=== PATIENT | female | born 1960 | race Caucasian/White ===

== ENCOUNTER 2018-07-19 08:19 | Emergency (ER) | payer OTHER ==
[~2018-07-19] VITALS: Ht 157.5 cm; Wt 68.5 kg
--- OUTSIDE RECORDS SUMMARY | 2018-07-19 08:21 | XMS REPORT ---
[facility] Address Unknown Phone Unavailable Care Team Providers Care Communications Systems Engineer Name Role Phone Unavailable Unavailable Payers Payer Name Policy Type Policy Number Effective Date Expiration Date Problems This patient has no known problems. Allergies, Adverse Reactions, Alerts Allergy Name Allergy Type Status Severity Reaction(s) Onset Date Inactive Date Treating Clinician Comments hydrocodone DA Active [place] 2013-01-02 00:00:00 Penicillins DA Active [place] 2012-10-30 00:00:00 Sulfa (Sulfonamide Antibiotics) DA Active [place] 2012-10-30 00:00:00 Medications This patient has no known medications.
--- OUTSIDE RECORDS SUMMARY | 2018-07-19 08:21 | XMS REPORT | Summary of Care ---
Author Author [facility] Organization [facility] Address Unknown Phone Unavailable Encounter HQ Nayely(FIN) [id number] Date(s): 09/17/17 - 09/17/17 [facility] [address] [place] [address]- [phone] Encounter Diagnosis Diverticulosis of large intestine without perforation or abscess without bleedin g (Final) - 09/23/17 Constipation, unspecified (Final) - Essential (primary) hypertension (Final) - Pain, unspecified (Final) - Family history of malignant neoplasm of digestive organs (Final) - Family history of colonic polyps (Final) - Acquired absence of both cervix and uterus (Final) - Discharge Disposition: Home or Self Care Attending Physician: Makayla Hamilton MD Referring Physician: Makayla Hamilton MD Vital Signs No data available for this section Problem List No data available for this section Allergies, Adverse Reactions, Alerts No data available for this section Medications No data available for this section Results CHEM PANEL Most recent to 1 oldest [Reference Range]: eGFR 98 mL/min/1.73m2 1 *NA* (09/17/17 9:57 AM) POC Creatinine 0.7 mg/dL [0.5-1.4 mg/dL] (09/17/17 9:57 AM) 1Result Comment: The eGFR is calculated using the CKD-EPI formula. In most young, healthy individuals the eGFR will be >90 mL/min/1.73m2. The eGFR declines with age. An eGFR of 60-89 may be normal in some populations, particularly the elderly, for whom the CKD-EPI formula has not been extensively validated. Use of the eGFR is not recommended in the following populations: Individuals with unstable creatinine concentrations, including patients and those with serious co-morbid conditions. Patients with extremes in muscle mass or diet. The data above are obtained from the National Kidney Disease Education Program ( NKDEP) which additionally recommends that when the eGFR is used in patients with extremes of body mass index for purposes of drug dosing, the eGFR should be mul tiplied by the estimated BMI. Immunizations No data available for this section Procedures No data available for this section Social History No data available for this section Assessment and Plan No data available for this section
--- OUTSIDE RECORDS SUMMARY | 2018-07-19 08:21 | XMS REPORT | Clinical Summary ---
Author Author [facility] Address Unknown Phone Unavailable Care Team Providers Care Basin Tender Name Role Phone Isaias Guerra MD PCP Allergies Comments Active Allergy Reactions Severity Noted Date Hydrocodone 10/07/2015 Penicillins 10/07/2015 Sulfa (Sulfonamide 10/07/2015 Antibiotics) Medications End Date Status Medication Sig Dispensed Refills Start Date Active atenolol (TENORMIN) 50 MG 0 tablet 6 Active VITAMIN D2 50,000 unit 0 capsule 6 Active promethazine (PHENERGAN) as needed. 0 25 MG tablet 6 Active ALPRAZolam (XANAX) 0.25 0 MG tablet 7 Active BUMETanide (BUMEX) 2 MG 0 tablet 7 Active cyanocobalamin 1,000 0 mcg/mL injection 7 Active estradiol (ESTRACE) 0.5 Take 1 tablet 60 tablet 0 MG tablet (0.5 mg 8 total) by mouth daily. 05/17/2018 Discontinued estradiol (ESTRACE) 0.5 Take 1 tablet 90 tablet 3 MG tablet (0.5 mg 7 total) by mouth daily. 05/24/2018 Discontinued estradiol (ESTRACE) 0.5 Take 1 tablet 60 tablet 0 MG tablet (0.5 mg 8 total) by mouth daily. Active Problems Problem Noted Date History of abnormal cervical Pap smear 05/17/2016 Encounters Care Team Description Date Type Specialty Barbaar Wagner RN 05/24/2018 Refill Obstetrics and Gynecology Paige Marquez MD Screening mammogram, encounter for (Primary Dx) 05/16/2018 Telephone Obstetrics and Gynecology after 07/18/2017 Family History Medical History Relation Name Comments Diabetes Mother Heart failure Mother Hypertension Mother Ovarian cancer Mother Stroke Mother Ovarian cancer Sister Relation Name Status Comments Mother Sister Social History Date Tobacco Use Types Packs/Day Years Used Never Smoker Alcohol Use Drinks/Week oz/Week Comments Yes social Sex Assigned at Date Recorded Not on file Industry Job Start Date Occupation Not on file Not on file Not on file Travel End Travel History Travel Start No recent travel history available. Last Filed Vital Signs Not on file Plan of Treatment Care Team Description Date Type Specialty Paige Marquez MD [address] [employer] [facility] [address] [place] [address] [phone] 07/31/2018 Office Visit Obstetrics and Gynecology Health Maintenance Due Date Last Done Comments CERVICAL CANCER SCREENING 1983 COLON CANCER SCREENING 2012 SHINGLES VACCINES (1 of 2012 2) INFLUENZA VACCINE 01/11/2018 BREAST CANCER SCREENING 08/11/2018 08/11/2016 Results Not on fileafter 07/18/2017 Insurance Payer Benefit Subscriber ID Type Phone Address Plan / Group AETNA AETNA xxxxxxxxxx HMO HMO,POS,EP O, [facility] Advance Directives Patient has advance care planning documents on file. For more information, good interiano contact: Dwayne Pierson [address] [place] [phone]
[2018-07-19] MEDS ORDERED: PANTOPRAZOLE 40 MG 10ML VIAL IV STA (08:35)
[2018-07-19] MEDS ORDERED: SODIUM CHLORIDE 0.9% 1000ML 1,000 ML IV STA (08:35)
[2018-07-19] MEDS ORDERED: MORPHINE SULFATE INJ 4 MG/ML INJ 1ML IV STA (08:35)
[2018-07-19] MEDS ORDERED: ONDANSETRON HCL INJ 2MG/ML 2ML 2 MG/ML VIAL IM STA (08:35)
[2018-07-19 08:52] LABS: BASOPHILS % 0.4 % (0.0-1.0); EOSINOPHILS # (AUTO) 0.1 (0.0-0.4); HEMATOCRIT 45.2 % (34.2-44.1); HEMOGLOBIN 15.5 g/dL (12.0-16.0); LYMPHOCYTES # (AUTO) 1.8 (1.0-3.2); LYMPHOCYTES % 26.4 % (18.0-39.1); MEAN CORPUSCULAR HEMOGLOBIN 31.8 pg (28-32); MEAN CORPUSCULAR HGB CONC 34.3 g/dL (31-35); MEAN CORPUSCULAR VOLUME 92.8 fL (81-99); MONOCYTES # (AUTO) 0.6 (0.2-0.8); MONOCYTES % 8.7 % (4.4-11.3); NEUTROPHILS # (AUTO) 4.3 (2.1-6.9); NEUTROPHILS % 62.2 % (38.7-80.0); PLATELET COUNT 353 x10e3/uL (140-360); RED BLOOD COUNT 4.87 x10e6/uL (3.6-5.1); RED CELL DISTRIBUTION WIDTH 11.8 % (11.7-14.4)
[2018-07-19 09:09] LABS: ALANINE AMINOTRANSFERASE 50 IU/L (0-55); ALBUMIN/GLOBULIN RATIO 1.1 (0.8-2.0); ALKALINE PHOSPHATASE 88 IU/L (40-150); ANION GAP 17.2 mmol/L (8-16); BLOOD UREA NITROGEN 10 mg/dL (7-26); BUN/CREATININE RATIO 12 (6-25); CARBON DIOXIDE 22 mmol/L (22-29); CHLORIDE 100 mmol/L (98-107); CREATININE, SERUM 0.82 mg/dL (0.57-1.11); EST GLOMERULAR FILTRATION RATE > 60 ML/MIN (60-); GLUCOSE 106 mg/dL (74-118); LIPASE 20 U/L (8-78); POTASSIUM 3.2 mmol/L (3.5-5.1); SODIUM 136 mmol/L (136-145)
[2018-07-19] MEDS ORDERED: ONDANSETRON HCL INJ 2MG/ML 2ML 2 MG/ML VIAL IV STA (09:12)
[2018-07-19 09:25] LABS: CLARITY,URINE SL CLOUDY (CLEAR); COLOR,URINE YELLOW (YELLOW); KETONES,URINE NEGATIVE (NEGATIVE); LEUKOCYTE ESTERASE ,URINE NEGATIVE (NEGATIVE); NITRITE,URINE NEGATIVE (NEGATIVE); PROTEIN,URINE DIPSTICK TRACE (NEGATIVE); URINE UROBILINOGEN 0.2 mg/dL (0.2 - 1)
[2018-07-19 09:26] LABS: BILIRUBIN,URINE NEGATIVE (NEGATIVE)
--- NOTE | 2018-07-19 09:29 | Diagnostic Imaging Report ---
EXAMINATION: CHEST SINGLE (PORTABLE) INDICATION: Abdominal pain. COMPARISON: None FINDINGS: TUBES and LINES: None. LUNGS: Lungs are well inflated. Lungs are clear. There is no evidence of pneumonia or pulmonary edema. PLEURA: No pleural effusion or pneumothorax. HEART AND MEDIASTINUM: The cardiomediastinal silhouette is unremarkable. BONES AND SOFT TISSUES: No acute osseous lesion. Soft tissues are unremarkable. UPPER ABDOMEN: No free air under the diaphragm. IMPRESSION: No acute radiographic abnormality. Signed by: Dr. Vijaya Esparza MD on 07/19/2018 9:25 AM
[2018-07-19 09:36] LABS: BACTERIA,URINE MODERATE /HPF; EPITHELIAL CELLS,URINE MODERATE /LPF
--- NOTE | 2018-07-19 13:25 | Diagnostic Imaging Report ---
EXAM: CT Abdomen and Pelvis WITH contrast INDICATION: Abdominal Pain, history of Crohn's disease. COMPARISON: None. TECHNIQUE: Abdomen and pelvis were scanned utilizing a multidetector helical scanner from the lung base to the pubic symphysis after administration of IV contrast. Coronal and sagittal reformations were obtained. Routine protocol was performed. Scan was performed when during portal venous phase. IV CONTRAST: 100 mL of Isovue 370 ORAL CONTRAST: Water COMPLICATIONS: None RADIATION DOSE: Total DLP: 817.7 mGy*cm CTDIvol has been reviewed. It is below the limits set by the Radiation Protocol Committee (RPC). Dose modulation, iterative reconstruction, and/or weight based adjustment of the mA/kV was utilized to reduce the radiation dose to as low as reasonably achievable. FINDINGS: LINES and TUBES: None. LOWER THORAX: Patchy dependent atelectasis. HEPATOBILIARY: Hypodensity along the falciform ligament likely reflects focal fatty infiltration. No evidence of focal lesion. No biliary ductal dilation. The gallbladder is unremarkable. SPLEEN: No splenomegaly. PANCREAS: No focal masses or ductal dilatation. ADRENALS: No adrenal nodules KIDNEYS/URETERS: Kidneys enhance symmetrically. No evidence of hydronephrosis, solid mass, or stone. GI TRACT: No evidence of distention. There is decompression of some of the ileal loops which demonstrate possible mild thickening, for example on series 2, image 55. No evidence of bowel obstruction. No specific evidence of fistula. Appendix is normal. Diverticulosis without CT evidence of diverticulitis. PELVIC ORGANS/BLADDER: Unremarkable. LYMPH NODES: No lymphadenopathy. VESSELS: There are scattered atherosclerotic calcifications in the aorta and branch vessels. PERITONEUM / RETROPERITONEUM: No free air or fluid. BONES AND SOFT TISSUES: No acute osseous abnormality. No suspicious lytic or blastic lesions. CONCLUSION: Possible mild thickening of some ileal loops, which may reflect decompression or inflammatory changes in this patient with history of Crohn's. No specific evidence of stricture or fistula. Signed by: Dr. Vijaya Esparza MD on 07/19/2018 1:22 PM
[2018-07-19] MEDS ORDERED: ZOFRAN4 MG SL (13:35)
[2018-07-19 13:40] VITALS: BP 120/79
[2018-07-19] MEDS ORDERED: SODIUM CHLORIDE 0.9% 50ML 50 ML ONE (19:27)
[2018-07-19] MEDS ORDERED: IOPAMIDOL 370 MG/ML 200 ML INFUS..BTL INJ ONE (19:27)
== END 2018-07-19 14:22 | disposition home or self-care (01) ==
LOC: ER 08:19
DX: R10.84 Generalized abdominal pain (principal); R11.0 Nausea; R19.7 Diarrhea, unspecified; K50.90 Crohn's disease, unspecified, without complications
CPT/HCPCS: 36415; 71045; 74177; 80053; 81001; 83690; 85025; 99284; C9113; J2270; J2405; J7030; Q9967

== ENCOUNTER 2019-04-01 12:32 | Emergency (ER) | payer BC, OTHER ==
[~2019-04-01] VITALS: Ht 157.5 cm; Wt 68.5 kg
[~2019-04-01 12:32] MED LIST: ZOFRAN4 MG SL
--- NOTE | 2019-04-01 12:53 | NUR ---
SEEN IN TRIAGE BY
[2019-04-01] MEDS ORDERED: SODIUM CHLORIDE 0.9% 1000ML 1,000 ML IV STA (12:59)
[2019-04-01 13:16] LABS: BILIRUBIN,URINE NEGATIVE (NEGATIVE); CLARITY,URINE CLEAR (CLEAR); COLOR,URINE YELLOW (YELLOW); KETONES,URINE NEGATIVE (NEGATIVE); LEUKOCYTE ESTERASE ,URINE NEGATIVE (NEGATIVE); NITRITE,URINE NEGATIVE (NEGATIVE); PROTEIN,URINE DIPSTICK NEGATIVE (NEGATIVE); URINE UROBILINOGEN 0.2 mg/dL (0.2 - 1)
[2019-04-01 13:48] LABS: BACTERIA,URINE RARE /HPF; EPITHELIAL CELLS,URINE FEW /LPF; RBC,URINE 0-5 /HPF (0-5); WBC,URINE (MAN) 0-5 /HPF (0-5)
[2019-04-01 13:56] LABS: INFLUENZAE A&B ANTIGEN (RAPID) NEGATIVE (NEGATIVE); STREPTOCOCCUS GRP A ANTIGEN NEGATIVE (NEGATIVE)
[2019-04-01 13:58] LABS: BASOPHILS # (AUTO) 0.1 (0.0-0.1); BASOPHILS % 0.7 % (0.0-1.0); EOSINOPHILS # (AUTO) 0.3 (0.0-0.4); EOSINOPHILS % 2.6 % (0.0-6.0); HEMATOCRIT 41.1 % (34.2-44.1); LYMPHOCYTES # (AUTO) 2.5 (1.0-3.2); LYMPHOCYTES % 25.4 % (18.0-39.1); MEAN CORPUSCULAR HEMOGLOBIN 32.2 pg (28-32); MEAN CORPUSCULAR HGB CONC 34.1 g/dL (31-35); MEAN CORPUSCULAR VOLUME 94.5 fL (81-99); MONOCYTES # (AUTO) 0.6 (0.2-0.8); MONOCYTES % 6.6 % (4.4-11.3); NEUTROPHILS # (AUTO) 6.2 (2.1-6.9); NEUTROPHILS % 64.4 % (38.7-80.0); PLATELET COUNT 385 x10e3/uL (140-360); RED BLOOD COUNT 4.35 x10e6/uL (3.6-5.1); RED CELL DISTRIBUTION WIDTH 12.1 % (11.7-14.4)
[2019-04-01 14:07] LABS: INR 0.83; PROTHROMBIN TIME 11.9 seconds (11.9-14.5)
[2019-04-01 14:08] LABS: PARTIAL THROMBOPLASTIN TIME 28.5 seconds (23.8-35.5)
--- NOTE | 2019-04-01 14:10 | NUR ---
IVF BOLUS INFUSING AND PT HAS C/O LEG PAIN/HEADACHE
[2019-04-01 14:15] LABS: ALANINE AMINOTRANSFERASE 15 IU/L (0-55); ALKALINE PHOSPHATASE 95 IU/L (40-150); ANION GAP 17.8 mmol/L (8-16); BLOOD UREA NITROGEN 8 mg/dL (7-26); BUN/CREATININE RATIO 10 (6-25); CALCIUM 10.4 mg/dL (8.4-10.2); CARBON DIOXIDE 23 mmol/L (22-29); CHLORIDE 104 mmol/L (98-107); CREATINE KINASE 22 IU/L (29-168); CREATININE, SERUM 0.82 mg/dL (0.57-1.11); EST GLOMERULAR FILTRATION RATE > 60 ML/MIN (60-); GLUCOSE 105 mg/dL (74-118); MAGNESIUM 1.7 MG/DL (1.3-2.1); POTASSIUM 3.8 mmol/L (3.5-5.1); SODIUM 141 mmol/L (136-145)
[2019-04-01] MEDS ORDERED: ACETAMINOPHEN 325 MG TAB ONE (14:25)
--- NOTE | 2019-04-01 14:25 | NUR ---
650MG OF TYLENOL GIVEN FOR C/O HEADACHE.
[2019-04-01 14:35] LABS: THYROID STIMULATING HORMONE 1.747 uIU/mL (0.350-4.940)
--- NOTE | 2019-04-01 15:13 | Diagnostic Imaging Report ---
Frontal and lateral views of the chest. HISTORY: Cough, shortness of breath, fever, chills COMPARISON: Chest radiograph July 2018 DISCUSSION: Soft tissue attenuation partially limits sensitivity of the exam. Lungs: The lungs are well inflated. No evidence of a consolidative pneumonia or pulmonary alveolar edema. Pleura: No pleural effusion or pneumothorax. Heart and mediastinum: The cardiomediastinal silhouette appear(s) unremarkable. Bones and soft tissues: Metallic surgical clips. IMPRESSION: 1. No acute radiographic abnormality. 2. No significant interval change. Signed by: Dr. Oz Kraft D.O., M.M.M. on 04/01/2019 3:10 PM
--- NOTE | 2019-04-01 15:18 | Diagnostic Imaging Report ---
CT BRAIN WO HISTORY: Headache, left facial numbness COMPARISON: None. TECHNIQUE: Noncontrast axial scans were obtained from skull base to the vertex. Coronal and sagittal reconstructions obtained from the axial data. One or more of the following dose reduction techniques were used: Automated exposure control, adjustment of the mA and/or kV according to patient size, and/or utilization of iterative reconstruction technique. DISCUSSION: Scalp/Skull: Unremarkable. Brain sulci: Appropriate for patient's age. Ventricles: Normal in size and configuration. No hydrocephalus. Extra-axial spaces: No masses or fluid collections. Carotid siphon calculations are present. Parenchyma: No abnormal densities. No mass, hemorrhage, or large vascular territory acute infarct. Dural sinuses: No abnormal densities. Sellar/Suprasellar region: Intact. Skull base: Intact. Incidental findings: None. IMPRESSION: No acute intracranial abnormalities. Signed by: Dr. Rayo Osorio M.D. on 04/01/2019 3:15 PM
[2019-04-01] MEDS ORDERED: ACETAMINOPHEN 325 MG TAB PO NR (15:45)
[2019-04-01] MEDS ORDERED: KETOROLAC TROMETHAMINE 30 MG/ML VIAL IV NR (16:00)
[2019-04-01] MEDS ORDERED: NIFEDIPINE 10 MG CAP PO NR (17:00)
[2019-04-01] MEDS ORDERED: SODIUM CHLORIDE 0.9% 500ML 500 ML IV ONE (17:30)
== END 2019-04-01 19:10 | disposition home or self-care (01) ==
LOC: ER 12:32
DX: R20.2 Paresthesia of skin (principal); R05 Cough; R51 Headache; J20.9 Acute bronchitis, unspecified; I10 Essential (primary) hypertension; F41.9 Anxiety disorder, unspecified; F32.9 Major depressive disorder, single episode, unspecified; K50.90 Crohn's disease, unspecified, without complications
CPT/HCPCS: 36415; 70450; 71046; 80053; 81001; 82550; 82553; 83518; 83605; 83735; 84443; 84484; 85025; 85610; 85730; 87040; 87070; 87086; 87400; 93005; 99284; J1885; J7030; J7040